=== PATIENT | male | born 1935 | race Caucasian/White ===

== ENCOUNTER → 2018-01-11 | Outpatient (CLI) | payer OTHER ==
[~2018-01-11] MED LIST: CHOL10002 PO; COLAZOL; COUMADIN; Canasa1000 MG; Canasa1000 MG PR; ESCI10 PO; ESOM20; IMMURAN; LOSARTAN POTASS25 MG PO; Loperamide2 MG PO; MELO7.5 PO; METO10 PO; Pravastatin Sod20 MG PO; Prilosec Otc20 MG PO; RXOXYACE PO; VENL150ER; VENLAFAXINE HCL75 MG PO; WARF2 PO; WARF5 PO
== END | disposition home or self-care (01) ==
LOC: LAB 12:22
DX: R97.20 Elevated prostate specific antigen [PSA] (principal)
CPT/HCPCS: 87070

== ENCOUNTER → 2018-01-18 | Outpatient (CLI) | payer OTHER | END | disposition home or self-care (01) | LOC: PLD 11:38 | DX: R97.20 Elevated prostate specific antigen [PSA] (principal) | CPT/HCPCS: 88305 ==

== ENCOUNTER 2019-02-15 08:29 | Day surgery (SDC) | payer OTHER ==
[~2019-02-15] VITALS: Ht 190.5 cm; Wt 78.9 kg
[~2019-02-15 08:29] MED LIST changes: +ELIQUIS2.5 MG PO; +LOPE2C PO; +MULTI VITAMIN1 EACH PO; +Omeprazole20 M1 PO; +PRAV20 PO; +Super Calcium600 MG PO; +VENL150ER PO; +VITAMIN D31000 UNIT PO
== END 2019-02-15 10:20 | disposition home or self-care (01) ==
LOC: ORSCSDS 08:29
PROVIDERS: Internal Medicine Gastroenterology
PROC: 0DBP8ZX Excision of Rectum, Via Natural or Artificial Opening Endoscopic, Diagnostic (ICD-10-PCS; principal; 2019-02-15 09:45)
DX: K51.20 Ulcerative (chronic) proctitis without complications (principal); E78.5 Hyperlipidemia, unspecified; K21.9 Gastro-esophageal reflux disease without esophagitis; Z79.01 Long term (current) use of anticoagulants; Z79.899 Other long term (current) drug therapy
CPT/HCPCS: 88305; J7030; J7120

== ENCOUNTER 2021-02-24 12:43 | Day surgery (SDC) | payer OTHER ==
[~2021-02-24] VITALS: Ht 193 cm; Wt 82.9 kg
[~2021-02-24 12:43] MED LIST changes: +BACL10 PO; +CANASA1000 MG; +MULTIPLE VITAM1 EACH PO; +OMEP20ER PO; +THERA-D2000 UNIT PO; +TUMS500 MG; +VENLAFAXINE HC150 MG PO
--- NOTE | 2021-02-24 14:09 | NUR ---
02/24/21 1409 LEVI GILMAN NO SEDATION FOR THIS PROCEDURE PER PT PREFERENCE
== END 2021-02-24 14:31 | disposition home or self-care (01) ==
LOC: ORSCSDS 12:43
PROVIDERS: Internal Medicine Gastroenterology
PROC: 0DBP8ZX Excision of Rectum, Via Natural or Artificial Opening Endoscopic, Diagnostic (ICD-10-PCS; principal; 2021-02-24 14:15)
DX: K51.219 Ulcerative (chronic) proctitis with unspecified complications (principal); K21.9 Gastro-esophageal reflux disease without esophagitis; Z79.899 Other long term (current) drug therapy
CPT/HCPCS: 88305; J7120

== ENCOUNTER 2022-02-17 20:29 | Observation (INO) | payer OTHER ==
[~2022-02-17] VITALS: Ht 190.5 cm; Wt 79.4 kg
[~2022-02-17 20:29] MED LIST changes: +Calcium Carbon500 MG PO; -TUMS500 MG
[2022-02-17 21:37] LABS: BASOPHILS PERCENT AUTO 1 % (0-2); EOSINOPHILS ABSOLUTE AUTO 0.12 K/mm3 (0.00-0.68); EOSINOPHILS PERCENT AUTO 1 % (0-6); Hematocrit 42.7 % (37.0-53.0); Hemoglobin 14.2 g/dL (13.5-17.5); IMMATURE GRAN ABSOLUTE AUTO 0.04 K/mm3 (0.00-0.10); IMMATURE GRAN PERCENT AUTO 0 % (0-1); LYMPHOCYTES ABSOLUTE AUTO 0.74 K/mm3 (0.84-5.20); LYMPHOCYTES PERCENT AUTO 6 % (21-46); MONOCYTES ABSOLUTE AUTO 0.94 K/mm3 (0.16-1.47); MONOCYTES PERCENT AUTO 7 % (4-13); Mean Corpuscular HGB 30.9 pg (26.0-34.0); Mean Corpuscular HGB Conc 33.3 g/dL (31.5-36.5); Mean Corpuscular Volume 93 fL (80-100); Mean Platelet Volume 9.1 fL (9.1-12.4); NEUTROPHILS PERCENT AUTO 86 % (41-73); Platelet Count 318 K/mm3 (150-400); RDW Standard Deviation 44.6 fL (35.1-46.3); Red Blood Cell Count 4.59 M/mm3 (4.30-5.90); White Blood Cell Count 13.34 K/mm3 (4.00-11.30)
[2022-02-17 22:04] LABS: Albumin, Blood 3.9 g/dL (3.4-5.0); Bilirubin, Total 0.4 mg/dL (0.1-1.0); Bun/Creatinine Ratio 15.3 (12.0-20.0); Calcium, Blood 10.5 mg/dL (8.5-10.1); Creatinine, Blood 1.83 mg/dL (0.60-1.20); Globulin, Blood 3.9 g/dL (2.2-4.0); Potassium, Blood 4.5 mmol/L (3.5-5.5); Total Protein, Blood 7.8 g/dL (6.4-8.2)
[2022-02-18 02:44] LABS: Influenza A, PCR NEGATIVE (NEGATIVE); Influenza B, PCR NEGATIVE (NEGATIVE); Resp Syncytial Virus, PCR NEGATIVE (NEGATIVE); SARS-Cov-2 (COVID-19) PCR, MMC NEGATIVE (NEGATIVE)
[2022-02-18 02:58] LABS: Source, Urine Clean Catch
[2022-02-18 03:01] LABS: Bilirubin, Urine Neg (Neg); Blood, Urine 1+ (Neg); Glucose Qualitative, Urine Neg (Neg); Ketones, Urine Neg (Neg); Leukocyte Esterase, Urine Neg (Neg); Nitrite, Urine Neg (Neg); Protein, Urine Neg (Neg); Urobilinogen, Urine NORM (Normal)
[2022-02-18 03:37] LABS: Appearance, Urine Clear (Clear); Bacteria Not Seen /hpf; Color, Urine Yellow (P-Yellow); Red Blood Cells, Urine 0-2 /hpf (0-2); Squamous Epithelial Cells Rare /hpf (Few); White Blood Cells, Urine Not Seen /hpf (0-5)
[2022-02-18 05:05] LABS: BASOPHILS ABSOLUTE AUTO 0.07 K/mm3 (0.00-0.23); BASOPHILS PERCENT AUTO 1 % (0-2); EOSINOPHILS ABSOLUTE AUTO 0.02 K/mm3 (0.00-0.68); EOSINOPHILS PERCENT AUTO 0 % (0-6); Hemoglobin 13.1 g/dL (13.5-17.5); IMMATURE GRAN ABSOLUTE AUTO 0.05 K/mm3 (0.00-0.10); IMMATURE GRAN PERCENT AUTO 0 % (0-1); LYMPHOCYTES ABSOLUTE AUTO 0.34 K/mm3 (0.84-5.20); LYMPHOCYTES PERCENT AUTO 3 % (21-46); MONOCYTES ABSOLUTE AUTO 0.88 K/mm3 (0.16-1.47); MONOCYTES PERCENT AUTO 7 % (4-13); Mean Corpuscular HGB 31.2 pg (26.0-34.0); Mean Corpuscular HGB Conc 32.8 g/dL (31.5-36.5); Mean Corpuscular Volume 95 fL (80-100); Mean Platelet Volume 9.2 fL (9.1-12.4); NEUTROPHILS ABSOLUTE AUTO 11.65 K/mm3 (1.96-9.15); NEUTROPHILS PERCENT AUTO 90 % (41-73); Platelet Count 265 K/mm3 (150-400); RDW Coefficient Variation 13.1 % (11.7-14.2); RDW Standard Deviation 45.8 fL (35.1-46.3); White Blood Cell Count 13.01 K/mm3 (4.00-11.30)
--- NOTE | 2022-02-18 05:30 | NUR ---
Patient came in from ER today with complaint of abdominal pain. He is admitted to the floor for Small bowel obstruction. He is AAOX4, breathing at room air. No complaint of pain or disconfort voices. He has an ileostomy bag to the left lower abdomen. He is on a clear liquid diet now. He is receiving N/S @ 125 ML /HR. Independent per baseline. He is able to communicates his needs. Pleasant and cooperative with care. Bed in low position, call light within reach. We will continue to monitor patient for any acute changes.
[2022-02-18 05:47] LABS: Albumin, Blood 3.5 g/dL (3.4-5.0); Bilirubin, Total 0.6 mg/dL (0.1-1.0); Bun/Creatinine Ratio 17.5 (12.0-20.0); Calcium, Blood 9.7 mg/dL (8.5-10.1); Creatinine, Blood 1.71 mg/dL (0.60-1.20); Globulin, Blood 3.4 g/dL (2.2-4.0); Potassium, Blood 4.9 mmol/L (3.5-5.5); Total Protein, Blood 6.9 g/dL (6.4-8.2)
--- NOTE | 2022-02-18 16:22 | NUR ---
PT IS A/OX4, PLEASANT AND COOPERATIVE, THE PT IS UP WITH MINIMAL ASSIST TO THE BATHROOM. PT REPORTED PAIN AROUND HIS ILIEOSTOMY SITE INTERMITTENLY RANGING FROM 4/10 TO 8/10 DEPENDING ON HOW HE IS LAYING OR MOVING. PT IS TOLERATING CLEAR LIQUIDS AT THIS TIME DENIES NAUSEA AND VOMITING. PT DAUGHTER IN TO VISIT WITH HIM TODAY. PT HAS BEEN CONSULTING WITH
--- NOTE | 2022-02-19 06:50 | NUR ---
SHIFT SUMMARY PATIENT ALERT AND ORIENTED X3. MEDICATED PER EMAR FOR PAIN. NO COMPLAINTS OF SHORTNESS OF BREATH. NO ACUTE ISSUES NOTED. BED IN LOWEST POSITION WITH WHEELS LOCKED. CALL LIGHT WITHIN REACH. REPORT GIVEN TO ONCOMING RN.
--- NOTE | 2022-02-19 18:11 | NUR ---
SHIFT SUMMARY A&OX4. PATIENT RESTED MOST OF SHIFT. SBA TO RESTROOM TO MANAGE IV POLE. RECEIVING IV FLUIDS. ILEOSTOMY PRODUCING OUTPUT. PATIENT MANAGED ILEOSTOMY. ADVANCED TO FULL LIQUID DIET. SMALL APPETITE. C/O NAUSEA MEDICATED PER JAN X1. WILL CONTINUE TO MONITOR.
--- NOTE | 2022-02-20 04:31 | NUR ---
SHIFT SUMMARY 86 YR M ADMITTED ON 02/18/22 FOR SMALL BOWEL OBSTRUCTION. FULL CODE. NO ACUTE CHANGES THIS SHIFT. PT MANAGES OWN ILEOSTOMY BAG AND AMBULATES INDEPENDANTLY TO BATHROOM. IV IN RIGHT ARM WAS DISCONTINUED DUE TO LEAKING. NEW IV PLACED IN LEFT FOREARM. NO C/O PAIN OR NAUSEA THIS SHIFT.
[2022-02-20 05:08] LABS: Hematocrit 35.7 % (37.0-53.0); Hemoglobin 11.6 g/dL (13.5-17.5); Mean Corpuscular HGB 30.9 pg (26.0-34.0); Mean Corpuscular HGB Conc 32.5 g/dL (31.5-36.5); Mean Corpuscular Volume 95 fL (80-100); Mean Platelet Volume 9.2 fL (9.1-12.4); Platelet Count 228 K/mm3 (150-400); RDW Coefficient Variation 13.1 % (11.7-14.2); RDW Standard Deviation 45.7 fL (35.1-46.3); Red Blood Cell Count 3.75 M/mm3 (4.30-5.90); White Blood Cell Count 7.48 K/mm3 (4.00-11.30)
[2022-02-20 05:32] LABS: Bun/Creatinine Ratio 12.7 (12.0-20.0); Calcium, Blood 8.8 mg/dL (8.5-10.1); Creatinine, Blood 1.42 mg/dL (0.60-1.20)
--- NOTE | 2022-02-20 19:22 | NUR ---
SHIFT SUMMARY PATIENT PLANNING TO DISCHARGE TOMORROW. NO SIGNIFICANT EVENTS T/O SHIFT. IV FLUIDS STOPPED AND TOLERATING DIET WELL. AMBULATED HALLWAYS WITH WALKER THIS AFTERNOON. REPORT GIVEN TO ONCOMING RN.
--- NOTE | 2022-02-21 05:18 | NUR ---
SHIFT SUMMARY 86 YR M ADMITTED ON 02/18/22 FOR SMALL BOWEL OBSTRUCTION. FULL CODE. PT IS SCHEDULED TO DISCHARGE HOME TODAY. HE AMBULATES INDEPENDANTLY AND IS ABLE TO TAKE CARE OF HIS OWN NEEDS IN THE ROOM. HE IS A&O X 4 AND IS EXCITED TO GO HOME TODAY.
== END 2022-02-21 11:32 | disposition home health service (06) ==
LOC: ER 20:29 → SURS 02-18 03:39 → MEDS 02-18 03:39
PROVIDERS: Family Medicine; Internal Medicine; Physician Assistant; Student in an Organized Health Care Education/Training Program; ADMIT Internal Medicine
DX: K43.3 Parastomal hernia with obstruction, without gangrene (principal); E78.5 Hyperlipidemia, unspecified; I12.9 Hypertensive chronic kidney disease with stage 1 through stage 4 chronic kidney disease, or unspecified chronic kidney disease; N18.9 Chronic kidney disease, unspecified; N20.0 Calculus of kidney; D72.829 Elevated white blood cell count, unspecified; K40.90 Unilateral inguinal hernia, without obstruction or gangrene, not specified as recurrent; Z88.8 Allergy status to other drugs, medicaments and biological substances; Z93.2 Ileostomy status; Z20.822 Contact with and (suspected) exposure to COVID-19; Z85.038 Personal history of other malignant neoplasm of large intestine; Z90.49 Acquired absence of other specified parts of digestive tract
CPT/HCPCS: 0241U; 36415; 74176; 74177; 80048; 80053; 81001; 83605; 83690; 85025; 85027; 85730; 86850; 86900; 86901; 90686; 96374; 96375; 99285-25; A9270; J2250; J2270; J2405; J7030; Q9967

== ENCOUNTER → 2022-03-03 | Outpatient (CLI) | payer OTHER ==
[2022-03-03 10:52] LABS: Source, Urine Clean Catch
[2022-03-03 13:32] LABS: Appearance, Urine Clear (Clear); Bilirubin, Urine Neg (Neg); Blood, Urine Neg (Neg); Color, Urine Yellow (P-Yellow); Glucose Qualitative, Urine Neg (Neg); Ketones, Urine Neg (Neg); Leukocyte Esterase, Urine Neg (Neg); Nitrite, Urine Neg (Neg); Protein, Urine 2+ (Neg); Specific Gravity, Urine 1.025 (1.003-1.022); Urobilinogen, Urine NORM (Normal)
[2022-03-03 14:24] LABS: Bacteria Mod /hpf; Squamous Epithelial Cells Rare /hpf (Few); Transitional Epithelial Cells Few /hpf (0-Rare)
== END | disposition home or self-care (01) ==
LOC: LAB SHORT 10:51 → LAB 10:51
PROVIDERS: Internal Medicine
DX: R30.0 Dysuria (principal)
CPT/HCPCS: 81001; 87086